=== PATIENT | male | born 1990 | race Caucasian/White ===

== ENCOUNTER 2017-04-20 15:02 | Emergency (ER) | payer SELFPAY ==
[~2017-04-20] VITALS: Ht 188 cm; Wt 90.7 kg
[2017-04-20 15:54] VITALS: BP 143/85
[2017-04-20] MEDS ORDERED: IBUPROFEN 800 MG TAB ONE (16:07)
--- NOTE | 2017-04-20 16:07 | NUR ---
PATIENT IS A 26 YO MALE BIB SELF FOR LACERATION TO RIGHT FRONTAL FOREHEAD, AWAKE AND ALERT DENIES LOC. BLEEDING CONTROLLED. TO OVF 4 WAITING MD HIGGINS.
[2017-04-20] MEDS ORDERED: LIDOCAINE 1% ED 50 ML ONE (16:23)
[2017-04-20] MEDS ORDERED: LIDOCAINE/EPI 1% 1:100000 20 ML VIAL INJ ONE ×2 (16:25→17:19)
--- NOTE | 2017-04-20 16:43 | NUR ---
PT SCALP SUTURE DONE BY MAULIK BANEGAS . PT TOLERATED PRECEDURE WELL.
--- NOTE | 2017-04-20 17:30 | NUR ---
PT TAKEN TO CT VIA W/C ACCOMPANIED BY [employer] CHECKER
[2017-04-20] MEDS ORDERED: ACETAMINOPHEN EXTRA STRENGTH 500 MG TAB PO ONE (17:35)
--- NOTE | 2017-04-20 18:00 | NUR ---
Patient appears to be resting comfortably in bed. BP 146/100 ,PAIN AT SCALP 5/10 ; MD AWARE NO N/V AT THIS TIME. Respirations even and unlabored. WILL CONTINUE TO MONITOR .
[2017-04-20 19:03] VITALS: BP 129/80
[2017-04-20] MEDS ORDERED: NEOMYCIN/POLYMYXIN/BACITRACIN 0.9 GM/1 PKT TP ONE (19:05)
== END 2017-04-20 19:04 | disposition home or self-care (01) ==
LOC: MED 15:02
DX: S01.81XA Laceration without foreign body of other part of head, initial encounter (principal); S16.1XXA Strain of muscle, fascia and tendon at neck level, initial encounter; F10.99 Alcohol use, unspecified with unspecified alcohol-induced disorder; W16.512A Jumping or diving into swimming pool striking water surface causing other injury, initial encounter; Y93.89 Activity, other specified; Y92.89 Other specified places as the place of occurrence of the external cause; Y99.8 Other external cause status
CPT/HCPCS: 12015; 70450; 72125; 99284; J2001